=== PATIENT | female | born 1945 | race Caucasian/White ===

== ENCOUNTER 2017-04-01 17:21 | Emergency (ER) | payer OTHER ==
[~2017-04-01] VITALS: Ht 162.6 cm; Wt 104.3 kg
[~2017-04-01 17:21] MED LIST: PERCOCET 5-3251 EACH PO
[2017-04-01] MEDS ORDERED: LANTUS100 UNIT/M (17:47)
[2017-04-01] MEDS ORDERED: CARDIZEM CD120 MG PO (17:47)
[2017-04-01] MEDS ORDERED: NOVOLOG100 UNIT/1 (17:47)
[2017-04-01] MEDS ORDERED: SERTRALINE HCL50 MG (17:48)
[2017-04-01] MEDS ORDERED: FLEXERIL PO (17:48)
[2017-04-01] MEDS ORDERED: ACCUPRIL40 MG PO (17:48)
[2017-04-01] MEDS ORDERED: CLONIDINE HCL0.2 M2 PO (17:48)
[2017-04-01] MEDS ORDERED: LOPRESSOR50 PO (17:49)
[2017-04-01] MEDS ORDERED: MUCINEX1200 MG PO (17:49)
[2017-04-01] MEDS ORDERED: HYDROCODONE-AP1 EAC6 PO (20:13)
[2017-04-01 20:23] VITALS: BP 184/70
== END 2017-04-01 20:25 | disposition home or self-care (01) ==
LOC: M.ERS 17:21
DX: S80.02XA Contusion of left knee, initial encounter (principal); S80.01XA Contusion of right knee, initial encounter; S60.212A Contusion of left wrist, initial encounter; S60.211A Contusion of right wrist, initial encounter; I10 Essential (primary) hypertension; E11.9 Type 2 diabetes mellitus without complications; E03.9 Hypothyroidism, unspecified; Z79.4 Long term (current) use of insulin; Z88.1 Allergy status to other antibiotic agents; Z88.8 Allergy status to other drugs, medicaments and biological substances; Z88.7 Allergy status to serum and vaccine; Z91.041 Radiographic dye allergy status; Z88.2 Allergy status to sulfonamides; W01.0XXA Fall on same level from slipping, tripping and stumbling without subsequent striking against object, initial encounter; Y93.89 Activity, other specified; Y92.89 Other specified places as the place of occurrence of the external cause; Y99.8 Other external cause status

== ENCOUNTER 2018-03-30 19:20 | Emergency (ER) | payer OTHER ==
[~2018-03-30] VITALS: Ht 162.6 cm; Wt 90.7 kg
[~2018-03-30 19:20] MED LIST changes: +ACCUPRIL40 MG PO; +CARDIZEM CD120 MG PO; +CLONIDINE HCL0.2 M2 PO; +FLEXERIL PO; +HYDROCODONE-AP1 EAC6 PO; +LANTUS100 UNIT/M; +LOPRESSOR50 PO; +MUCINEX1200 MG PO; +NOVOLOG100 UNIT/1; +SERTRALINE HCL50 MG
[2018-03-30 22:23] LABS: ABSOLUTE EOSINOPHILS 0.3 thou/uL (0.0-0.7); ABSOLUTE LYMPHOCYTES 1.8 thou/uL (0.8-5.3); ABSOLUTE MONOCYTES 0.4 thou/uL (0.0-1.2); ABSOLUTE NEUTROPHILS 4.5 thou/uL (1.6-8.1); BASOPHILS 0.5 %; EOSINOPHILS 4.3 %; HEMATOCRIT 43.5 % (37.0-47.0); HEMOGLOBIN 14.5 gm/dL (12.0-15.0); LYMPHOCYTES 25.2 %; MCH 30.6 pg (26.0-34.0); MCHC 33.3 g/dL (28.0-37.0); MCV 91.9 fL (80.0-100.0); NUCLEATED RBCS 0 /100WBC; PLATELET COUNT* 228 thou/uL (150-400); RBC 4.73 mil/uL (4.20-5.00); RDW-CV 13.2 % (10.5-14.5); WBC 7.1 thou/uL (4.0-11.0)
[2018-03-30 22:31] LABS: CALCIUM 9.7 mg/dL (8.5-10.1); CREATININE 0.9 mg/dL (0.6-1.3); POTASSIUM 4.3 mmol/L (3.5-5.1)
[2018-03-30 22:36] LABS: ALBUMIN 3.7 g/dL (3.4-5.0); TOTAL BILIRUBIN 0.4 mg/dL (<0.1-1.0); TOTAL PROTEIN 7.6 g/dL (6.4-8.2)
[2018-03-30 23:20] LABS: URINE BILIRUBIN NEGATIVE (Negative); URINE BLOOD NEGATIVE (Negative); URINE CLARITY CLEAR; URINE COLOR YELLOW; URINE GLUCOSE-RANDOM NEGATIVE (Negative); URINE KETONES NEGATIVE (Negative); URINE LEUKOCYTES-REFLEX NEGATIVE (Negative); URINE NITRITE-REFLEX NEGATIVE (Negative); URINE PROTEIN NEGATIVE (Negative); URINE SPECIFIC GRAVITY <= 1.005 (1.005-1.030); URINE UROBILINOGEN 0.2 E.U./dl (0.2-1.0)
[2018-03-30] MEDS ORDERED: FLEET ENEMA133 ML RECTAL (23:42)
[2018-03-30] MEDS ORDERED: CITRATE OF MAG296 ML PO (23:42)
[2018-03-30 23:46] VITALS: BP 188/82
== END 2018-03-30 23:47 | disposition home or self-care (01) ==
LOC: M.ERS 19:20
PROVIDERS: Nurse Practitioner Family
DX: K59.00 Constipation, unspecified (principal); I10 Essential (primary) hypertension; E03.9 Hypothyroidism, unspecified; E11.9 Type 2 diabetes mellitus without complications; Z88.1 Allergy status to other antibiotic agents; Z88.2 Allergy status to sulfonamides; Z88.6 Allergy status to analgesic agent; Z88.8 Allergy status to other drugs, medicaments and biological substances; Z88.7 Allergy status to serum and vaccine; Z91.041 Radiographic dye allergy status; Z79.4 Long term (current) use of insulin; Z98.890 Other specified postprocedural states; Z90.49 Acquired absence of other specified parts of digestive tract

== ENCOUNTER 2019-08-19 16:53 | Emergency (ER) | payer OTHER ==
[~2019-08-19] VITALS: Ht 162.6 cm; Wt 104.3 kg
[~2019-08-19 16:53] MED LIST changes: +CITRATE OF MAG296 ML PO; +FLEET ENEMA133 ML RECTAL
[2019-08-19 19:21] VITALS: BP 167/104
== END 2019-08-19 19:21 | disposition home or self-care (01) ==
LOC: M.ERS 16:53
DX: K59.00 Constipation, unspecified (principal); I10 Essential (primary) hypertension; E03.9 Hypothyroidism, unspecified; E11.9 Type 2 diabetes mellitus without complications; Z79.4 Long term (current) use of insulin; Z90.49 Acquired absence of other specified parts of digestive tract; Z90.710 Acquired absence of both cervix and uterus; Z91.041 Radiographic dye allergy status; Z88.1 Allergy status to other antibiotic agents; Z88.2 Allergy status to sulfonamides; Z88.8 Allergy status to other drugs, medicaments and biological substances

== ENCOUNTER → 2019-09-30 | Outpatient (CLI) | payer OTHER | LOC: M.RAD 11:00 | PROVIDERS: ATTEND Registered Nurse Diabetes Educator | DX: K59.39 Other megacolon (principal); R10.32 Left lower quadrant pain; M54.42 Lumbago with sciatica, left side; G89.29 Other chronic pain; M85.88 Other specified disorders of bone density and structure, other site; M51.36 Other intervertebral disc degeneration, lumbar region; K59.00 Constipation, unspecified; M47.816 Spondylosis without myelopathy or radiculopathy, lumbar region; I87.8 Other specified disorders of veins ==

== ENCOUNTER 2019-10-07 17:16 | Emergency (ER) | payer OTHER ==
[~2019-10-07] VITALS: Ht 162.6 cm; Wt 102.1 kg
[2019-10-07 18:57] LABS: ABSOLUTE EOSINOPHILS 0.1 thou/uL (0.0-0.7); ABSOLUTE LYMPHOCYTES 2.1 thou/uL (0.8-5.3); ABSOLUTE MONOCYTES 0.4 thou/uL (0.0-1.2); ABSOLUTE NEUTROPHILS 5.6 thou/uL (1.6-8.1); BASOPHILS 0.3 %; EOSINOPHILS 1.8 %; HEMATOCRIT 49.6 % (37.0-47.0); HEMOGLOBIN 17.3 gm/dL (12.0-15.0); LYMPHOCYTES 25.1 %; MCH 31.2 pg (26.0-34.0); MCHC 34.8 g/dL (28.0-37.0); MCV 89.8 fL (80.0-100.0); MONOCYTES 5.1 %; MPV 7.4 fl. (7.2-11.1); NUCLEATED RBCS 0 /100WBC; PLATELET COUNT* 289 thou/uL (150-400); POLYS 67.7 %; RBC 5.53 mil/uL (4.20-5.00); RDW-CV 12.9 % (10.5-14.5); WBC 8.2 thou/uL (4.0-11.0)
[2019-10-07 18:57] LABS: URINE BILIRUBIN NEGATIVE (Negative); URINE BLOOD NEGATIVE (Negative); URINE CLARITY CLEAR; URINE COLOR YELLOW; URINE GLUCOSE-RANDOM NEGATIVE (Negative); URINE KETONES NEGATIVE (Negative); URINE LEUKOCYTES-REFLEX 1+ (Negative); URINE NITRITE-REFLEX NEGATIVE (Negative); URINE PROTEIN NEGATIVE (Negative); URINE SPECIFIC GRAVITY <= 1.005 (1.005-1.030); URINE UROBILINOGEN 0.2 E.U./dl (0.2-1.0)
[2019-10-07 19:01] LABS: BACTERIA-REFLEX None Seen /HPF (None Seen); CASTS None Seen /LPF (None Seen); CRYSTALS None Seen /LPF (None Seen); SQUAMOUS 0-3 Few /LPF (0-3); URINE RBC None Seen /HPF (0-2); URINE WBC-REFLEX 6-15 Few /HPF (0-5)
[2019-10-07 19:06] LABS: CALCIUM 9.9 mg/dL (8.5-10.1); CREATININE 1.1 mg/dL (0.6-1.3)
[2019-10-07 19:10] LABS: TOTAL BILIRUBIN 0.5 mg/dL (<0.1-1.0); TOTAL PROTEIN 9.6 g/dL (6.4-8.2)
[2019-10-07] MEDS ORDERED: BENTYL 20 MG TA20 M1 PO (19:55)
[2019-10-07] MEDS ORDERED: CITRATE OF MAG296 M1 PO (19:55)
[2019-10-07] MEDS ORDERED: ONDANSETRON HCL4 M2 PO (20:11)
[2019-10-07 21:00] VITALS: BP 161/76
--- NOTE | 2019-10-08 14:01 | EKG ---
[place] [address] ELECTROCARDIOGRAM REPORT Name: ABGIAIL ZIMMERMAN Room: [facility]#: [id number] Admission: 10/07/19 Attend Phys: Discharge: 10/07/19 Date of : 41 Date of Service: 10/07/191912 Report #: [id number] THIS REPORT FOR: //name// [facility] ED Test Date: 2019-10-07 Test Time: 19:13:40 Pat Name: ABIGAIL ZIMMERMAN Department: Room: Gender: [employer]: MARGO : 1945 Requested By: Mila Phillip Order Number: [id number] MD: Armando Jo Measurements Intervals [place] Rate: 95 P: 35 OR: 176 QRS: -40 QRSD: 145 T: 119 QT: 405 QTc: 509 Interpretive Statements Sinus rhythm Left bundle branch block Baseline wander in lead(s) III,aVF,V1 No previous ECG available for comparison Electronically Signed On 10-08-2019 14:01:10 CDT by Armando Jo [email or web address] <ELECTRONICALLY SIGNED> By: Armando Jo MD, FACC 10/08/19 1401 12 12 Armando Jo MD, FAC /EPI
== END 2019-10-07 21:07 | disposition home or self-care (01) ==
LOC: M.ERS 17:16
PROVIDERS: Nurse Practitioner Family
DX: K59.00 Constipation, unspecified (principal); R19.7 Diarrhea, unspecified; I10 Essential (primary) hypertension; E03.9 Hypothyroidism, unspecified; E11.9 Type 2 diabetes mellitus without complications; G89.29 Other chronic pain; Z90.49 Acquired absence of other specified parts of digestive tract; Z90.710 Acquired absence of both cervix and uterus; Z88.1 Allergy status to other antibiotic agents; Z88.2 Allergy status to sulfonamides; Z88.8 Allergy status to other drugs, medicaments and biological substances